=== PATIENT | female | born 1940 | race Caucasian/White ===

== ENCOUNTER → 2016-11-21 | Outpatient (CLI) | payer MEDICARE, OTHER ==
[~2016-11-21] MED LIST: APRESOLINE50 MG PO; ASPIR 8181 MG PO; AVAPRO300 MG PO; C-PAP; CARTIA XT300 MG PO; CATAPRES0.1 M1 PO; COREG25 MG PO; CRESTOR20 MG PO; DEMADEX20 MG PO; DILTIAZEM ER300 MG PO; HUMALOG100 UNIT/1 SUB-Q; KLOR-CON M1010 MEQ PO; LANTUS100 UNIT/1 SUB-Q; LEXAPRO20 MG PO; NORVASC10 MG PO; OSCAL + D500 MG PO; PRADAXA150 MG PO; PRILOSEC20 MG PO; PROAIR HFA8.5 GM INH; RESTASIS1 EACH OPHTH; SPIRONOLACTONE25 MG PO; TAZTIA XT120 MG PO; VITAMIN D1000 UNI1 PO; XALATAN2.5 ML OPHTH; ZETIA10 MG PO
== END | disposition disaster alternative care site (69) ==
LOC: LNHI 12:57
DX: I10 Essential (primary) hypertension (principal); I25.10 Atherosclerotic heart disease of native coronary artery without angina pectoris; I50.32 Chronic diastolic (congestive) heart failure